=== PATIENT | female | born 1935 | race African-American/Black ===

== ENCOUNTER → 2016-11-22 | Outpatient (CLI) | payer OTHER ==
[~2016-11-22] MED LIST: ANUCORT HC25 M1 RC; COLACE100 MG PO; ESOMEPRAZOLE MA40 MG PO; FUROSEMIDE40 MG PO; METAMUCIL3.4 GM/Do1 PO; NEXIUM20 MG PO; NORCO1 TA2 PO
== END | disposition home or self-care (01) ==
LOC: CT 11:26
PROC: BW211ZZ Computerized Tomography (CT Scan) of Abdomen and Pelvis using Low Osmolar Contrast (ICD-10-PCS; principal; 2016-11-22)
DX: K92.2 Gastrointestinal hemorrhage, unspecified (principal)
CPT/HCPCS: Q9967

== ENCOUNTER 2017-11-29 16:44 | Inpatient (IN) | payer OTHER ==
[~2017-11-29] VITALS: Ht 154.9 cm; Wt 44.1 kg
[2017-11-29 17:07] VITALS: Ht 154.9 cm; Wt 44.1 kg
[2017-11-29 19:05] LABS: BASOPHIL % 0.3 % (0-2); PLATELET COUNT 311 x10^3mcL (130-400)
[2017-11-29 19:06] LABS: RED CELL DISTRIBUTION WIDTH 16.2 % (11.5-14.5)
[2017-11-29 19:12] LABS: CALCIUM 7.7 mg/dL (8.5-10.1); CARBON DIOXIDE 33.9 mmol/L (21-32); CHLORIDE SERUM 109 mmol/L (98-107); CREATININE SERUM 0.6 mg/dL (0.6-1.0); GLUCOSE SERUM 102 mg/dL (74-106); POTASSIUM SERUM 3.1 mmol/L (3.5-5.1); SODIUM SERUM 140 mmol/L (136-145)
[2017-11-29] MEDS ORDERED: CHLORTHALIDONE25 MG PO (20:28)
[2017-11-29 20:46] LABS: PHOSPHOROUS 3.5 mg/dL (2.5-4.9)
[2017-11-29 20:51] LABS: CHOLESTEROL/HDL RATIO 1.7
[2017-11-29 21:00] VITALS: BP 145/82
[2017-11-30 06:10] VITALS: BP 146/58
[2017-11-30 07:21] LABS: BASOPHIL % 0.5 % (0-2); PLATELET COUNT 307 x10^3mcL (130-400)
[2017-11-30 07:31] LABS: RED CELL DISTRIBUTION WIDTH 16.4 % (11.5-14.5)
[2017-11-30 07:43] LABS: CALCIUM 8.6 mg/dL (8.5-10.1); CARBON DIOXIDE 31.2 mmol/L (21-32); CHLORIDE SERUM 106 mmol/L (98-107); CREATININE SERUM 0.7 mg/dL (0.6-1.0); GLUCOSE SERUM 89 mg/dL (74-106); POTASSIUM SERUM 3.1 mmol/L (3.5-5.1); SODIUM SERUM 143 mmol/L (136-145)
[2017-11-30 08:03] VITALS: BP 115/59
[2017-11-30 08:22] LABS: FREE T4 0.95 ng/dL (0.76-1.46); FREE THYROXINE INDEX 1.3 ug/dL (1.4-4.5); T4(THYROXINE) 3.8 ug/dL (4.7-13.3)
[2017-11-30 08:25] LABS: T3 TOTAL 0.82 ng/mL
[2017-11-30 10:19] LABS: UA SPECIFIC GRAVITY 1.015 (1.005-1.035); microscopic required? YES; urine erythrocyte TRACE (NEGATIVE)
[2017-11-30 12:37] VITALS: BP 137/73
[2017-11-30 16:08] VITALS: BP 110/63
[2017-11-30 19:55] VITALS: BP 115/52
[2017-12-01 05:22] VITALS: BP 129/51
[2017-12-01 10:50] VITALS: BP 104/39
[2017-12-01] MEDS ORDERED: BACTRIM DS1 TAB PO (12:05)
[2017-12-01 13:59] VITALS: BP 126/66
[2017-12-01 14:58] LABS: CALCIUM 8.7 mg/dL (8.5-10.1); CARBON DIOXIDE 30.5 mmol/L (21-32); CHLORIDE SERUM 104 mmol/L (98-107); CREATININE SERUM 0.7 mg/dL (0.6-1.0); GLUCOSE SERUM 110 mg/dL (74-106); POTASSIUM SERUM 4.2 mmol/L (3.5-5.1); SODIUM SERUM 136 mmol/L (136-145)
[2017-12-01 15:48] VITALS: BP 126/66
== END 2017-12-01 18:13 | disposition home or self-care (01) | DRG 302 ==
LOC: ED 16:44 → DU 19:42
PROVIDERS: Emergency Medicine; Internal Medicine
DX: I87.8 Other specified disorders of veins (principal); E43 Unspecified severe protein-calorie malnutrition; N39.0 Urinary tract infection, site not specified; Z68.1 Body mass index [BMI] 19.9 or less, adult; E87.6 Hypokalemia; E83.51 Hypocalcemia; T46.5X6A Underdosing of other antihypertensive drugs, initial encounter; I10 Essential (primary) hypertension; Y92.009 Unspecified place in unspecified non-institutional (private) residence as the place of occurrence of the external cause
CPT/HCPCS: 83880; 84439; 85378; J0696; J1644; J1940; J7030; Q0092; Q0163

== ENCOUNTER 2018-05-09 10:35 | Emergency (ER) | payer OTHER ==
[~2018-05-09] VITALS: Ht 144.8 cm; Wt 44.9 kg
[~2018-05-09 10:35] MED LIST changes: +BACTRIM DS1 TAB PO; +CHLORTHALIDONE25 MG PO
[2018-05-09 10:39] VITALS: Ht 144.8 cm; Wt 44.9 kg
[2018-05-09 12:10] VITALS: BP 157/72
== END 2018-05-09 12:10 | disposition home or self-care (01) ==
LOC: ED 10:35
DX: I50.9 Heart failure, unspecified (principal); I11.0 Hypertensive heart disease with heart failure; Z98.890 Other specified postprocedural states; Z88.5 Allergy status to narcotic agent
CPT/HCPCS: J1940